=== PATIENT | male | born 1950 | race Caucasian/White ===

== ENCOUNTER 2023-08-09 17:17 | Inpatient (IN) | payer OTHER ==
[~2023-08-09] VITALS: Ht 172.7 cm; Wt 70.8 kg
[~2023-08-09 17:17] MED LIST: ARIP5TAB42; CYCL10TA24 PO; ESCI20TA38 PO; HYDR-3927 PO; LEVE500T9 PO; LUBI8CAP PO; METO25CA PO; NEU300 PO; OSEL75CA PO; SIMV-343 PO
[2023-08-09 17:21] VITALS: BP_SYST 125; PULSE 73; RESP 15; TEMP 98.8; O2SAT 95
[2023-08-09 17:47] LABS: BASOPHILS % (AUTO) 0.8 % (0.0-2.0); EOSINOPHILS # (AUTO) 0.1 K/uL (0.0-0.4); EOSINOPHILS % (AUTO) 2.5 % (0.0-4.0); HEMATOCRIT 38.7 % (36-54); HEMOGLOBIN 13.1 g/dL (14.0-18.0); LYMPHOCYTES # (AUTO) 1.5 K/uL (1.0-5.5); LYMPHOCYTES % (AUTO) 27.8 % (20.5-51.5); MEAN CORPUSCULAR HEMOGLOBIN 29 pg (27-31); MEAN CORPUSCULAR HGB CONC 34 % (32-36); MEAN CORPUSCULAR VOLUME 86 fL (79.0-98.0); MONOCYTES # (AUTO) 0.5 K/uL (0.0-1.0); MONOCYTES % (AUTO) 8.6 % (1.7-9.3); NEUTROPHILS # (AUTO) 3.2 K/uL (1.8-7.7); NEUTROPHILS % (AUTO) 60.3 % (40.0-70.0); PLATELET COUNT (AUTO) 157 K/uL (130-430); RED BLOOD CELL COUNT(AUTO) 4.53 MIL/uL (4.2-6.2); WHITE BLOOD COUNT (AUTO) 5.4 K/uL (4.8-10.8)
[2023-08-09 17:59] LABS: PROTHROMBIN TIME 10.4 SECS (9.5-12.5)
[2023-08-09 18:03] LABS: BILIRUBIN,URINE NEGATIVE (NEGATIVE); BLOOD, URINE NEGATIVE (NEGATIVE); CLARITY/URINE CLEAR (CLEAR); COLOR,URINE YELLOW (YELLOW); GLUCOSE,URINE NEGATIVE (NEGATIVE); KETONES,URINE NEGATIVE (NEGATIVE); LEUKOCYTE ESTERASE ,URINE NEGATIVE (NEGATIVE); NITRITE, URINE NEGATIVE (NEGATIVE); PH,URINE 7.5 (5.0-8.0); PROTEIN URINE NEGATIVE (NEGATIVE); UROBILINOGEN,URINE 0.2 (0.2-1.0)
[2023-08-09] MEDS: MECLIZINE HCL 25 MG TABLET (ANITVERT) PO ONE (18:42)
[2023-08-09 19:02] LABS: ALANINE AMINOTRANSFERASE 29 U/L (12-78); ALBUMIN 3.7 g/dL (3.4-4.8); AMYLASE 34 U/L (0-100); ANION GAP 8 (5-15); ASPARTATE AMINOTRANSFERASE 9 U/L (10-37); BILIRUBIN,DIRECT 0.1 mg/dL (0.0-0.3); CALCIUM 8.9 mg/dL (8.4-11.0); CARBON DIOXIDE 28 mmol/L (23-29); CHLORIDE 100 mmol/L (98-107); CREATININE 0.92 mg/dL (0.55-1.30); GLUCOSE 98 mg/dL (74-106); LACTATE DEHYDROGENASE 154 U/L (85-227); LIPASE 25 U/L (16-77); POTASSIUM 4.6 mmol/L (3.5-5.1); SODIUM SERUM 136 mmol/L (136-145); TOTAL BILIRUBIN 0.5 mg/dL (0.0-1.0); UREA NITROGEN, BLOOD 20 mg/dL (8-21)
[2023-08-09 19:03] LABS: GFR AFRICAN AMERICAN 105 mL/min (>90); GFR NON AFRICAN-AMERICAN 86 mL/min (>90)
[2023-08-09 19:20] LABS: ACETONE, SERUM NEGATIVE (NEGATIVE)
[2023-08-09] MEDS: METOCLOPRAMIDE HCL 10 MG/2 ML VIAL IV ONE (19:37)
[2023-08-09] MEDS ORDERED: ACETAMINOPHEN 325 MG TABLET PO PRN (21:30)
[2023-08-09] MEDS ORDERED: LORazepam 2 MG/ML VIAL IVP PRN (21:30)
[2023-08-09] MEDS ORDERED: DOCUSATE SODIUM 100 MG CAPSULE PO PRN (21:30)
[2023-08-09] MEDS ORDERED: MUPIROCIN 2% TOPICAL OINTMENT 22 GM NS PRN (21:30)
[2023-08-09] MEDS ORDERED: ONDANSETRON HCL 4 MG/2 ML VIAL IVP PRN (21:30)
[2023-08-09] MEDS ORDERED: MORPHINE 2 MG/ML INJ. SYRINGE IVP PRN (21:30)
[2023-08-09] MEDS ORDERED: POTASSIUM CHLORIDE 20 MEQ TABLET.ER PO PRN (21:30)
[2023-08-09] MEDS ORDERED: ZOLPIDEM TARTRATE 5 MG TABLET PO PRN (21:30)
[2023-08-09] MEDS ORDERED: MAGNESIUM SULFATE 50 ML IV PRN (21:30)
[2023-08-09] MEDS: ALPRAZolam 0.25 MG TABLET PO ONE (21:51)
[2023-08-10 04:30] LABS: BASOPHILS % (AUTO) 0.5 % (0.0-2.0); EOSINOPHILS # (AUTO) 0.1 K/uL (0.0-0.4); EOSINOPHILS % (AUTO) 2.8 % (0.0-4.0); HEMATOCRIT 39.4 % (36-54); HEMOGLOBIN 13.5 g/dL (14.0-18.0); LYMPHOCYTES # (AUTO) 1.7 K/uL (1.0-5.5); LYMPHOCYTES % (AUTO) 35.4 % (20.5-51.5); MEAN CORPUSCULAR HEMOGLOBIN 29 pg (27-31); MEAN CORPUSCULAR HGB CONC 34 % (32-36); MEAN CORPUSCULAR VOLUME 86 fL (79.0-98.0); MONOCYTES # (AUTO) 0.4 K/uL (0.0-1.0); MONOCYTES % (AUTO) 8.1 % (1.7-9.3); NEUTROPHILS # (AUTO) 2.6 K/uL (1.8-7.7); NEUTROPHILS % (AUTO) 53.2 % (40.0-70.0); PLATELET COUNT (AUTO) 141 K/uL (130-430); RED CELL DISTRIBUTION WIDTH 14.7 % (9.0-15.0); WHITE BLOOD COUNT (AUTO) 4.9 K/uL (4.8-10.8)
[2023-08-10 05:05] LABS: CALCIUM 9.3 mg/dL (8.4-11.0); CREATININE 0.79 mg/dL (0.55-1.30); POTASSIUM 3.9 mmol/L (3.5-5.1)
[2023-08-10 09:12] VITALS: BP_SYST 107; PULSE 77; RESP 16; TEMP 98.6; O2SAT 96
[2023-08-10] MEDS: levETIRAcetam 500 MG TABLET PO SCH (09:44)
[2023-08-10] MEDS: GABAPENTIN 300 MG CAPSULE PO SCH (09:45)
[2023-08-10] MEDS: SIMVASTATIN 20 MG TABLET PO SCH (09:45)
[2023-08-10] MEDS: ARIPiprazole 5 MG TAB PO SCH (09:45)
[2023-08-10] MEDS: HEPARIN SODIUM,PORCINE 5,000 UNITS/ML VIAL SUBCUT SCH (09:47)
[2023-08-10 10:00] VITALS: BP_SYST 107; PULSE 77; RESP 16; TEMP 98.6
[2023-08-10] MEDS: CITALOPRAM HYDROBROMIDE 20 MG TABLET PO SCH (10:39)
[2023-08-10 12:38] VITALS: BP_SYST 106; PULSE 68; RESP 16; TEMP 97.8; O2SAT 97
[2023-08-10] MEDS: LUBIPROSTONE 8 MCG CAPSULE PO SCH (13:04)
[2023-08-10] MEDS: MAG-AL HYDROX/SIMETH 30 ML UDC PO ONE (13:04)
[2023-08-10] MEDS: MORPHINE 2 MG/ML INJ. SYRINGE IVP PRN (14:34)
[2023-08-10] MEDS: IBUPROFEN 800 MG TABLET PO ONE (16:54)
[2023-08-10 17:04] VITALS: BP_SYST 133; PULSE 74; RESP 17; TEMP 97.8; O2SAT 97
[2023-08-10 20:00] VITALS: BP_SYST 123; PULSE 70; RESP 18; TEMP 98.2; O2SAT 96
[2023-08-10 20:15] VITALS: O2SAT 96
[2023-08-10] MEDS: MAG-AL HYDROX/SIMETH 30 ML UDC PO PRN (22:05)
[2023-08-11 00:10] VITALS: BP_SYST 121; PULSE 66; RESP 18; TEMP 98; O2SAT 95
[2023-08-11 05:54] LABS: BASOPHILS % (AUTO) 0.4 % (0.0-2.0); EOSINOPHILS # (AUTO) 0.1 K/uL (0.0-0.4); EOSINOPHILS % (AUTO) 2.4 % (0.0-4.0); HEMATOCRIT 40.7 % (36-54); HEMOGLOBIN 13.8 g/dL (14.0-18.0); LYMPHOCYTES # (AUTO) 1.6 K/uL (1.0-5.5); LYMPHOCYTES % (AUTO) 30.2 % (20.5-51.5); MEAN CORPUSCULAR HEMOGLOBIN 29 pg (27-31); MEAN CORPUSCULAR HGB CONC 34 % (32-36); MEAN CORPUSCULAR VOLUME 86 fL (79.0-98.0); MONOCYTES # (AUTO) 0.3 K/uL (0.0-1.0); MONOCYTES % (AUTO) 6.6 % (1.7-9.3); NEUTROPHILS # (AUTO) 3.1 K/uL (1.8-7.7); NEUTROPHILS % (AUTO) 60.4 % (40.0-70.0); PLATELET COUNT (AUTO) 144 K/uL (130-430); RED BLOOD CELL COUNT(AUTO) 4.74 MIL/uL (4.2-6.2); RED CELL DISTRIBUTION WIDTH 14.5 % (9.0-15.0); WHITE BLOOD COUNT (AUTO) 5.2 K/uL (4.8-10.8)
[2023-08-11 07:37] LABS: CALCIUM 8.7 mg/dL (8.4-11.0); CREATININE 0.77 mg/dL (0.55-1.30); POTASSIUM 4.2 mmol/L (3.5-5.1)
[2023-08-11 08:00] VITALS: BP_SYST 129; PULSE 80; RESP 16; TEMP 98.4; O2SAT 98
[2023-08-11 12:17] VITALS: BP_SYST 117; PULSE 84; RESP 16; TEMP 98.5; O2SAT 96
[2023-08-11 13:32] VITALS: BP_SYST 117; PULSE 84; RESP 16; TEMP 98.5; O2SAT 96
== END 2023-08-11 14:30 | disposition home health service (06) | DRG 74 ==
LOC: SED 17:17 → STU 21:22
PROVIDERS: ADMIT General Practice; ATTEND General Practice
PROC: 4A00X4Z Measurement of Central Nervous Electrical Activity, External Approach (ICD-10-PCS; principal; 2023-08-11)
DX: G90.9 Disorder of the autonomic nervous system, unspecified (principal); E44.0 Moderate protein-calorie malnutrition; F32.A Depression, unspecified; E78.5 Hyperlipidemia, unspecified; F39 Unspecified mood [affective] disorder; G40.909 Epilepsy, unspecified, not intractable, without status epilepticus; I10 Essential (primary) hypertension; Z87.820 Personal history of traumatic brain injury; Z90.49 Acquired absence of other specified parts of digestive tract; Z68.23 Body mass index [BMI] 23.0-23.9, adult; Z79.899 Other long term (current) drug therapy
CPT/HCPCS: 36415; 70450-TC; 80048; 80076; 81001; 81003; 82009; 82150; 83037; 83605; 83615; 83690; 83735; 84484; 85025; 85610; 85730; 93005; 93880; 95816; 97110-GP; 97112-GP; 97116-GP; 97530-GP; 99285; G0378; J1644; J2270; J2765; J8597

== ENCOUNTER 2023-09-06 20:25 | Emergency (ER) | payer OTHER ==
[~2023-09-06] VITALS: Ht 177.8 cm; Wt 72.6 kg
[2023-09-06 20:51] VITALS: BP_SYST 128; PULSE 88; RESP 20; TEMP 97.7; O2SAT 94
[2023-09-06 21:29] LABS: BASOPHILS % (AUTO) 0.8 % (0.0-2.0); EOSINOPHILS # (AUTO) 0.2 K/uL (0.0-0.4); EOSINOPHILS % (AUTO) 3.2 % (0.0-4.0); HEMATOCRIT 37.5 % (36-54); HEMOGLOBIN 12.8 g/dL (14.0-18.0); LYMPHOCYTES # (AUTO) 1.5 K/uL (1.0-5.5); LYMPHOCYTES % (AUTO) 26.9 % (20.5-51.5); MEAN CORPUSCULAR HEMOGLOBIN 29 pg (27-31); MEAN CORPUSCULAR HGB CONC 34 % (32-36); MEAN CORPUSCULAR VOLUME 85 fL (79.0-98.0); MONOCYTES # (AUTO) 0.6 K/uL (0.0-1.0); NEUTROPHILS # (AUTO) 3.4 K/uL (1.8-7.7); NEUTROPHILS % (AUTO) 59.1 % (40.0-70.0); PLATELET COUNT (AUTO) 160 K/uL (130-430); RED BLOOD CELL COUNT(AUTO) 4.41 MIL/uL (4.2-6.2); RED CELL DISTRIBUTION WIDTH 14.1 % (9.0-15.0); WHITE BLOOD COUNT (AUTO) 5.7 K/uL (4.8-10.8)
[2023-09-06 21:46] LABS: ACETAMINOPHEN 2 ug/mL (1-30); ALANINE AMINOTRANSFERASE 33 U/L (12-78); ALBUMIN 3.6 g/dL (3.4-4.8); ANION GAP 5 (5-15); ASPARTATE AMINOTRANSFERASE 17 U/L (10-37); BILIRUBIN,DIRECT 0.1 mg/dL (0.0-0.3); CARBON DIOXIDE 32 mmol/L (23-29); CHLORIDE 101 mmol/L (98-107); CREATININE 0.98 mg/dL (0.55-1.30); GFR AFRICAN AMERICAN 97 mL/min (>90); GLUCOSE 103 mg/dL (74-106); POTASSIUM 4.3 mmol/L (3.5-5.1); SALICYLATE 1 mg/dL (3-30); SODIUM SERUM 138 mmol/L (136-145); TOTAL BILIRUBIN 0.3 mg/dL (0.0-1.0); TOTAL PROTEIN, SERUM 6.9 g/dL (6.4-8.3); UREA NITROGEN, BLOOD 22 mg/dL (8-21)
[2023-09-06 21:49] LABS: ALCOHOL, BLOOD < 3 mg/dL (<10); GFR NON AFRICAN-AMERICAN 80 mL/min (>90)
[2023-09-06 22:17] LABS: BILIRUBIN,URINE NEGATIVE (NEGATIVE); BLOOD, URINE NEGATIVE (NEGATIVE); CLARITY/URINE CLEAR (CLEAR); COLOR,URINE YELLOW (YELLOW); GLUCOSE,URINE NEGATIVE (NEGATIVE); KETONES,URINE NEGATIVE (NEGATIVE); LEUKOCYTE ESTERASE ,URINE NEGATIVE (NEGATIVE); NITRITE, URINE NEGATIVE (NEGATIVE); PROTEIN URINE NEGATIVE (NEGATIVE); UROBILINOGEN,URINE 0.2 (0.2-1.0)
[2023-09-06 22:33] LABS: BARBITURATE, URINE NEGATIVE (NEG <=200); BENZODIAZEPINE, URINE NEGATIVE (NEG <=150); CANNABINOID, URINE NEGATIVE (NEG <=50); COCAINE, URINE NEGATIVE (NEG <=150); METHAMPHETAMINES SCREEN,URINE NEGATIVE (NEG <=500); OPIATE, URINE POSITIVE (NEG <=100); PHENCYCLIDINE SCREEN,URINE NEGATIVE (NEG <=25); UR TRICYCLIC ANTIDEPRESSANTS NEGATIVE (NEG <=300); URINE AMPHETAMINE NEGATIVE (NEG <=500); URINE METHADONE NEGATIVE (NEG <=200); URINE OXYCODONE SCREEN NEGATIVE (NEG <=100)
[2023-09-07 00:48] VITALS: BP_SYST 127; PULSE 68; RESP 14; TEMP 98; O2SAT 94
== END 2023-09-07 00:48 | disposition home or self-care (01) ==
LOC: SED 20:25
DX: T39.1X1A Poisoning by 4-Aminophenol derivatives, accidental (unintentional), initial encounter (principal); K21.9 Gastro-esophageal reflux disease without esophagitis; I10 Essential (primary) hypertension; F32.A Depression, unspecified; Z90.49 Acquired absence of other specified parts of digestive tract; Z79.899 Other long term (current) drug therapy; Z79.2 Long term (current) use of antibiotics; Y92.89 Other specified places as the place of occurrence of the external cause
CPT/HCPCS: 99284; 80307; 80076; 80048; 85025; 36415; 93005; 81001; G0482; G0480; G0481; 81003

== ENCOUNTER 2023-11-19 12:14 | Inpatient (IN) | payer OTHER, MEDICAID ==
[~2023-11-19] VITALS: Ht 177.8 cm; Wt 72.6 kg
[2023-11-19 12:18] VITALS: BP_SYST 131; PULSE 101; RESP 18; TEMP 98; O2SAT 96
[2023-11-19 13:05] LABS: BASOPHILS % (AUTO) 0.3 % (0.0-2.0); EOSINOPHILS # (AUTO) 0.3 K/uL (0.0-0.4); EOSINOPHILS % (AUTO) 2.6 % (0.0-4.0); HEMATOCRIT 43.7 % (36-54); HEMOGLOBIN 14.4 g/dL (14.0-18.0); LYMPHOCYTES # (AUTO) 0.9 K/uL (1.0-5.5); LYMPHOCYTES % (AUTO) 8.2 % (20.5-51.5); MEAN CORPUSCULAR HEMOGLOBIN 29 pg (27-31); MEAN CORPUSCULAR HGB CONC 33 % (32-36); MEAN CORPUSCULAR VOLUME 87 fL (79.0-98.0); MONOCYTES # (AUTO) 0.8 K/uL (0.0-1.0); MONOCYTES % (AUTO) 7.2 % (1.7-9.3); NEUTROPHILS # (AUTO) 8.9 K/uL (1.8-7.7); NEUTROPHILS % (AUTO) 81.7 % (40.0-70.0); PLATELET COUNT (AUTO) 153 K/uL (130-430); RED BLOOD CELL COUNT(AUTO) 5.01 MIL/uL (4.2-6.2); RED CELL DISTRIBUTION WIDTH 13.9 % (9.0-15.0); WHITE BLOOD COUNT (AUTO) 10.9 K/uL (4.8-10.8)
[2023-11-19 13:31] LABS: ALANINE AMINOTRANSFERASE 20 U/L (12-78); ALBUMIN 4.2 g/dL (3.4-4.8); ANION GAP 9 (5-15); ASPARTATE AMINOTRANSFERASE 13 U/L (10-37); BILIRUBIN,DIRECT 0.2 mg/dL (0.0-0.3); CALCIUM 9.6 mg/dL (8.4-11.0); CARBON DIOXIDE 30 mmol/L (23-29); CHLORIDE 101 mmol/L (98-107); CREATININE 0.89 mg/dL (0.55-1.30); GLUCOSE 92 mg/dL (74-106); POTASSIUM 4.2 mmol/L (3.5-5.1); SODIUM SERUM 140 mmol/L (136-145); TOTAL PROTEIN, SERUM 7.6 g/dL (6.4-8.3); UREA NITROGEN, BLOOD 17 mg/dL (8-21)
[2023-11-19] MEDS: NACL 0.9% 1,000 ML IV ONE (16:01)
[2023-11-19] MEDS ORDERED: ASPI-1393 PO (16:03)
[2023-11-19] MEDS ORDERED: LORA10CA (16:05)
[2023-11-19] MEDS ORDERED: LEVE500T9 (16:07)
[2023-11-19] MEDS ORDERED: OMEP40CA20 (16:07)
[2023-11-19] MEDS ORDERED: LUBI24CA9 (16:07)
[2023-11-19] MEDS ORDERED: ATOG60TA (16:15)
[2023-11-19] MEDS ORDERED: HYDR-3917 (16:15)
[2023-11-19] MEDS ORDERED: POLY17PO PO (16:15)
[2023-11-19] MEDS ORDERED: ACET500T95 (16:15)
[2023-11-19] MEDS ORDERED: PSYL3.4P5 (16:15)
[2023-11-19] MEDS ORDERED: RIME75TA (16:15)
[2023-11-19] MEDS ORDERED: SENN8.6T19 (16:24)
[2023-11-19] MEDS ORDERED: MAG-55 (16:24)
[2023-11-19] MEDS: D5LR 1,000 ML IV SCH (17:17)
[2023-11-19] MEDS: PANTOPRAZOLE SODIUM 40 MG/VIAL (PROTONIX) IVP ONE (17:31)
[2023-11-19] MEDS: levETIRAcetam 500 MG in NS 100 ML IV SCH (17:34)
[2023-11-19 20:00] VITALS: BP_SYST 122; PULSE 77; RESP 18; TEMP 98
[2023-11-19] MEDS ORDERED: NALOXONE HCL 0.4 MG/ML AMP (NARCAN) IVP PRN (22:00)
[2023-11-19 22:06] VITALS: BP_SYST 122; PULSE 77; TEMP 98; O2SAT 95
[2023-11-20] VITALS: BP_SYST 117; PULSE 77; TEMP 99
[2023-11-20] MEDS: MORPHINE 2 MG/ML INJ. SYRINGE IVP PRN (01:28)
[2023-11-20] MEDS: ACETAMINOPHEN 650 MG SUPP.RECT RC PRN (03:43)
[2023-11-20 04:55] LABS: BASOPHILS % (AUTO) 0.5 % (0.0-2.0); EOSINOPHILS # (AUTO) 0.4 K/uL (0.0-0.4); EOSINOPHILS % (AUTO) 4.6 % (0.0-4.0); HEMATOCRIT 38.9 % (36-54); HEMOGLOBIN 12.9 g/dL (14.0-18.0); LYMPHOCYTES # (AUTO) 1.2 K/uL (1.0-5.5); LYMPHOCYTES % (AUTO) 12.8 % (20.5-51.5); MEAN CORPUSCULAR HEMOGLOBIN 29 pg (27-31); MEAN CORPUSCULAR HGB CONC 33 % (32-36); MEAN CORPUSCULAR VOLUME 86 fL (79.0-98.0); MONOCYTES # (AUTO) 0.7 K/uL (0.0-1.0); MONOCYTES % (AUTO) 7.5 % (1.7-9.3); NEUTROPHILS # (AUTO) 6.9 K/uL (1.8-7.7); NEUTROPHILS % (AUTO) 74.6 % (40.0-70.0); PLATELET COUNT (AUTO) 148 K/uL (130-430); WHITE BLOOD COUNT (AUTO) 9.3 K/uL (4.8-10.8)
[2023-11-20 05:19] LABS: ALANINE AMINOTRANSFERASE 17 U/L (12-78); ALBUMIN 3.4 g/dL (3.4-4.8); ANION GAP 6 (5-15); ASPARTATE AMINOTRANSFERASE 11 U/L (10-37); CALCIUM 8.9 mg/dL (8.4-11.0); CARBON DIOXIDE 31 mmol/L (23-29); CHLORIDE 104 mmol/L (98-107); CREATININE 0.81 mg/dL (0.55-1.30); GLUCOSE 93 mg/dL (74-106); POTASSIUM 4.3 mmol/L (3.5-5.1); SODIUM SERUM 141 mmol/L (136-145); TOTAL BILIRUBIN 0.8 mg/dL (0.0-1.0); TOTAL PROTEIN, SERUM 6.6 g/dL (6.4-8.3); UREA NITROGEN, BLOOD 14 mg/dL (8-21)
[2023-11-20] MEDS: levETIRAcetam 500 MG IV PREMIX 100 ML IV SCH (06:59)
[2023-11-20 08:00] VITALS: BP_SYST 136; PULSE 88; RESP 20; TEMP 96.8; O2SAT 97; O2SAT 99
[2023-11-20] MEDS: PANTOPRAZOLE SODIUM 40 MG/VIAL (PROTONIX) IVP SCH (10:37)
[2023-11-20] MEDS: MORPHINE 4 MG INJ. 4 MG/ML VIAL IVP PRN (10:39)
[2023-11-20 16:34] VITALS: BP_SYST 140; PULSE 85; RESP 18; TEMP 99.1; O2SAT 97
[2023-11-20 20:00] VITALS: BP_SYST 135; PULSE 85; RESP 18; TEMP 98.6; O2SAT 96
[2023-11-21 00:39] VITALS: BP_SYST 151; PULSE 77; RESP 18; TEMP 98.1; O2SAT 97
[2023-11-21] MEDS: fentaNYL CITRATE/PF 100 MCG/2 ML AMP ONE (07:15)
[2023-11-21] MEDS: MIDAZOLAM HCL 5 MG/5 ML VIAL ONE (07:15)
[2023-11-21 08:36] VITALS: BP_SYST 131; PULSE 77; RESP 16; TEMP 97.8; O2SAT 96
[2023-11-21 12:26] VITALS: BP_SYST 131; PULSE 74; RESP 16; TEMP 98.4; O2SAT 98
[2023-11-21 16:00] VITALS: BP_SYST 138; PULSE 72; RESP 18; TEMP 97.8; O2SAT 98
[2023-11-21] MEDS: MAG-AL HYDROX/SIMETH 30 ML UDC PO ONE (18:09)
[2023-11-21 20:00] VITALS: BP_SYST 149; PULSE 73; RESP 18; TEMP 97.9; O2SAT 97
[2023-11-22] VITALS: BP_SYST 139; PULSE 67; RESP 18; TEMP 97.9; O2SAT 96
[2023-11-22 08:00] VITALS: BP_SYST 134; PULSE 72; RESP 16; TEMP 97.9; O2SAT 95
[2023-11-22 12:31] VITALS: BP_SYST 142; PULSE 70; RESP 17; TEMP 97.7; O2SAT 97
[2023-11-22 15:00] VITALS: BP_SYST 134; PULSE 72; RESP 16; TEMP 97.9; O2SAT 95
[2023-11-22 16:15] VITALS: BP_SYST 140; PULSE 64; RESP 18; TEMP 97.8; O2SAT 96
[2023-11-22 20:00] VITALS: BP_SYST 129; PULSE 75; RESP 18; TEMP 98; O2SAT 96
[2023-11-23] VITALS: BP_SYST 122; PULSE 75; RESP 18; TEMP 97.8; O2SAT 98
[2023-11-23 09:30] VITALS: O2SAT 98
[2023-11-23 09:37] VITALS: BP_SYST 135; PULSE 78; RESP 18; TEMP 97.2; O2SAT 98
[2023-11-23 12:31] VITALS: BP_SYST 131; PULSE 69; RESP 16; TEMP 97.9; O2SAT 98
[2023-11-23] MEDS: MAG-AL HYDROX/SIMETH 30 ML UDC PO PRN (14:56)
[2023-11-23 17:05] VITALS: BP_SYST 134; RESP 14; TEMP 98.6; O2SAT 96
[2023-11-23 20:00] VITALS: BP_SYST 134; PULSE 72; RESP 18; TEMP 97.7; O2SAT 96
[2023-11-24] VITALS (7 sets, daily range): BP systolic 127–140; PULSE 77–96; RESP 14–18; TEMP 97.9–99.1; O2SAT 95–98
[2023-11-24] MEDS: ONDANSETRON HCL 4 MG/2 ML VIAL IVP PRN (09:46)
[2023-11-25] VITALS: BP_SYST 117; PULSE 74; RESP 16; TEMP 97.5; O2SAT 95
[2023-11-25 04:00] VITALS: BP_SYST 118; PULSE 74; RESP 16; TEMP 97.3; O2SAT 95
[2023-11-25 06:25] LABS: BASOPHILS % (AUTO) 0.5 % (0.0-2.0); EOSINOPHILS # (AUTO) 0.5 K/uL (0.0-0.4); EOSINOPHILS % (AUTO) 7.2 % (0.0-4.0); HEMATOCRIT 38.6 % (36-54); HEMOGLOBIN 12.9 g/dL (14.0-18.0); LYMPHOCYTES # (AUTO) 1.6 K/uL (1.0-5.5); LYMPHOCYTES % (AUTO) 22.8 % (20.5-51.5); MEAN CORPUSCULAR HEMOGLOBIN 29 pg (27-31); MEAN CORPUSCULAR HGB CONC 33 % (32-36); MEAN CORPUSCULAR VOLUME 86 fL (79.0-98.0); MONOCYTES # (AUTO) 0.7 K/uL (0.0-1.0); MONOCYTES % (AUTO) 9.5 % (1.7-9.3); NEUTROPHILS # (AUTO) 4.3 K/uL (1.8-7.7); PLATELET COUNT (AUTO) 186 K/uL (130-430); RED BLOOD CELL COUNT(AUTO) 4.51 MIL/uL (4.2-6.2); RED CELL DISTRIBUTION WIDTH 13.8 % (9.0-15.0); WHITE BLOOD COUNT (AUTO) 7.2 K/uL (4.8-10.8)
[2023-11-25 06:50] LABS: ANION GAP 9 (5-15); CALCIUM 8.9 mg/dL (8.4-11.0); CARBON DIOXIDE 30 mmol/L (23-29); CHLORIDE 102 mmol/L (98-107); CREATININE 0.73 mg/dL (0.55-1.30); GLUCOSE 91 mg/dL (74-106); POTASSIUM 3.6 mmol/L (3.5-5.1); SODIUM SERUM 141 mmol/L (136-145); UREA NITROGEN, BLOOD 8 mg/dL (8-21)
[2023-11-25 08:00] VITALS: BP_SYST 116; PULSE 81; RESP 18; TEMP 97.4; O2SAT 97
[2023-11-25 12:47] VITALS: BP_SYST 127; PULSE 82; RESP 18; TEMP 98; O2SAT 98
[2023-11-25 16:25] VITALS: BP_SYST 125; PULSE 83; RESP 18; TEMP 98.5; O2SAT 97
[2023-11-25] MEDS ORDERED: DIPHENHYDRAMINE INJ 50 MG/ML VIAL IVP PRN (17:30)
[2023-11-25 20:00] VITALS: BP_SYST 127; PULSE 74; RESP 18; TEMP 97.9; O2SAT 96
[2023-11-26] VITALS: BP_SYST 122; PULSE 72; RESP 18; TEMP 97.2; O2SAT 95
[2023-11-26 07:49] VITALS: BP_SYST 119; PULSE 72; RESP 18; TEMP 97.3; O2SAT 97
[2023-11-26 08:30] VITALS: O2SAT 97
[2023-11-26 11:05] VITALS: BP_SYST 121; PULSE 82; RESP 16; TEMP 97.8; O2SAT 97
[2023-11-26 20:04] VITALS: BP_SYST 139; PULSE 79; RESP 19; TEMP 97.9; O2SAT 96
[2023-11-27] VITALS (7 sets, daily range): BP systolic 119–132; PULSE 57–98; RESP 15–18; TEMP 97.3–98.8; O2SAT 96–100
[2023-11-28] VITALS (7 sets, daily range): BP systolic 130–144; PULSE 60–105; RESP 15–16; TEMP 96.1–98.2; O2SAT 95–99
[2023-11-28 08:04] LABS: ALANINE AMINOTRANSFERASE 18 U/L (12-78); ANION GAP 6 (5-15); ASPARTATE AMINOTRANSFERASE 9 U/L (10-37); CALCIUM 9.1 mg/dL (8.4-11.0); CARBON DIOXIDE 33 mmol/L (23-29); CHLORIDE 102 mmol/L (98-107); CREATININE 0.68 mg/dL (0.55-1.30); GLUCOSE 88 mg/dL (74-106); PHOSPHORUS 3.5 mg/dL (2.7-4.5); POTASSIUM 3.6 mmol/L (3.5-5.1); SODIUM SERUM 141 mmol/L (136-145); TOTAL BILIRUBIN 0.5 mg/dL (0.0-1.0); TOTAL PROTEIN, SERUM 6.3 g/dL (6.4-8.3); UREA NITROGEN, BLOOD 5 mg/dL (8-21)
[2023-11-28 08:05] LABS: BASOPHILS % (AUTO) 0.8 % (0.0-2.0); EOSINOPHILS # (AUTO) 0.6 K/uL (0.0-0.4); EOSINOPHILS % (AUTO) 10.8 % (0.0-4.0); HEMOGLOBIN 12.1 g/dL (14.0-18.0); LYMPHOCYTES # (AUTO) 1.8 K/uL (1.0-5.5); LYMPHOCYTES % (AUTO) 31.5 % (20.5-51.5); MEAN CORPUSCULAR HEMOGLOBIN 28 pg (27-31); MEAN CORPUSCULAR HGB CONC 33 % (32-36); MEAN CORPUSCULAR VOLUME 85 fL (79.0-98.0); MONOCYTES # (AUTO) 0.5 K/uL (0.0-1.0); MONOCYTES % (AUTO) 9.6 % (1.7-9.3); NEUTROPHILS # (AUTO) 2.6 K/uL (1.8-7.7); NEUTROPHILS % (AUTO) 47.3 % (40.0-70.0); PLATELET COUNT (AUTO) 225 K/uL (130-430); RED BLOOD CELL COUNT(AUTO) 4.33 MIL/uL (4.2-6.2); RED CELL DISTRIBUTION WIDTH 13.8 % (9.0-15.0); WHITE BLOOD COUNT (AUTO) 5.6 K/uL (4.8-10.8)
[2023-11-29 00:18] VITALS: BP_SYST 121; PULSE 70; RESP 17; TEMP 98; O2SAT 96
[2023-11-29] MEDS: SIMETHICONE 40 MG/0.6 ML ML ONE (06:50)
[2023-11-29] MEDS: MEPERIDINE 100 MG INJ. 100 MG/ML VIAL ONE (06:50)
[2023-11-29] MEDS: MIDAZOLAM HCL 5 MG/5 ML VIAL ONE (06:51)
[2023-11-29 08:00] VITALS: BP_SYST 131; PULSE 77; RESP 18; TEMP 95.5; O2SAT 96
[2023-11-29] MEDS: CEFAZOLIN 1 GM IVPB PREMIX 50 ML IV ONE ×2 (11:40→12:00)
[2023-11-29 12:35] VITALS: BP_SYST 129; PULSE 72; RESP 18; TEMP 97.7; O2SAT 96
[2023-11-29] MEDS: MORPHINE 4 MG INJ. 4 MG/ML VIAL IVP PRN (16:06)
[2023-11-29 16:12] VITALS: BP_SYST 149; PULSE 83; RESP 18; TEMP 97.4; O2SAT 98
[2023-11-29 20:03] VITALS: BP_SYST 125; PULSE 95; RESP 20; TEMP 99.3; O2SAT 100
[2023-11-30 00:48] VITALS: BP_SYST 108; PULSE 81; RESP 19; TEMP 98.7
[2023-11-30 06:34] LABS: BASOPHILS % (AUTO) 0.4 % (0.0-2.0); EOSINOPHILS # (AUTO) 0.4 K/uL (0.0-0.4); EOSINOPHILS % (AUTO) 6.7 % (0.0-4.0); HEMATOCRIT 39.2 % (36-54); HEMOGLOBIN 13.1 g/dL (14.0-18.0); LYMPHOCYTES # (AUTO) 1.1 K/uL (1.0-5.5); LYMPHOCYTES % (AUTO) 16.2 % (20.5-51.5); MEAN CORPUSCULAR HEMOGLOBIN 29 pg (27-31); MEAN CORPUSCULAR HGB CONC 34 % (32-36); MEAN CORPUSCULAR VOLUME 85 fL (79.0-98.0); MONOCYTES # (AUTO) 0.6 K/uL (0.0-1.0); NEUTROPHILS # (AUTO) 4.5 K/uL (1.8-7.7); NEUTROPHILS % (AUTO) 67.7 % (40.0-70.0); PLATELET COUNT (AUTO) 205 K/uL (130-430); RED BLOOD CELL COUNT(AUTO) 4.61 MIL/uL (4.2-6.2); RED CELL DISTRIBUTION WIDTH 13.8 % (9.0-15.0); WHITE BLOOD COUNT (AUTO) 6.6 K/uL (4.8-10.8)
[2023-11-30 07:09] LABS: ALANINE AMINOTRANSFERASE 14 U/L (12-78); ALBUMIN 2.9 g/dL (3.4-4.8); ANION GAP 7 (5-15); ASPARTATE AMINOTRANSFERASE 12 U/L (10-37); CALCIUM 8.5 mg/dL (8.4-11.0); CARBON DIOXIDE 30 mmol/L (23-29); CHLORIDE 102 mmol/L (98-107); CREATININE 0.86 mg/dL (0.55-1.30); GLUCOSE 102 mg/dL (74-106); POTASSIUM 4.2 mmol/L (3.5-5.1); SODIUM SERUM 139 mmol/L (136-145); TOTAL BILIRUBIN 0.5 mg/dL (0.0-1.0); TOTAL PROTEIN, SERUM 6.3 g/dL (6.4-8.3); UREA NITROGEN, BLOOD 15 mg/dL (8-21)
[2023-11-30 08:00] VITALS: BP_SYST 126; PULSE 74; RESP 18; TEMP 98.6; O2SAT 98
[2023-11-30 12:03] VITALS: BP_SYST 127; PULSE 85; RESP 18; TEMP 98.1; O2SAT 99
[2023-11-30 16:00] VITALS: BP_SYST 131; PULSE 85; RESP 18; TEMP 98.3; O2SAT 97
[2023-11-30 19:56] VITALS: O2SAT 96
[2023-11-30 20:23] VITALS: BP_SYST 119; PULSE 81; RESP 20; TEMP 98.2; O2SAT 97
[2023-12-01 00:43] VITALS: BP_SYST 111; PULSE 78; RESP 18; TEMP 98.6; O2SAT 96
[2023-12-01 08:05] VITALS: BP_SYST 131; PULSE 78; RESP 17; TEMP 98.3; O2SAT 95
[2023-12-01 11:12] VITALS: BP_SYST 119; PULSE 85; RESP 16; TEMP 98.1; O2SAT 96
[2023-12-01 15:05] VITALS: BP_SYST 125; PULSE 79; RESP 16; TEMP 98; O2SAT 97
[2023-12-01 18:50] VITALS: BP_SYST 125; PULSE 79; RESP 16; TEMP 98; O2SAT 97
[2023-12-01 19:15] VITALS: O2SAT 97
== END 2023-12-01 21:40 | DRG 57 ==
LOC: SED 12:14 → SMU 15:59 → STU 16:31 → SMU 17:30 → STU 11-20 07:21 → SMU 11-30 17:33
PROVIDERS: ADMIT Internal Medicine; ATTEND Internal Medicine
PROC: 0DB98ZX Excision of Duodenum, Via Natural or Artificial Opening Endoscopic, Diagnostic (ICD-10-PCS; 2023-11-21)
PROC: 0DB68ZX Excision of Stomach, Via Natural or Artificial Opening Endoscopic, Diagnostic (ICD-10-PCS; 2023-11-21)
PROC: 0DB58ZX Excision of Esophagus, Via Natural or Artificial Opening Endoscopic, Diagnostic (ICD-10-PCS; 2023-11-21)
PROC: 0DH68UZ Insertion of Feeding Device into Stomach, Via Natural or Artificial Opening Endoscopic (ICD-10-PCS; principal; 2023-11-29 09:30)
DX: I69.391 Dysphagia following cerebral infarction (principal); F03.93 Unspecified dementia, unspecified severity, with mood disturbance; K29.70 Gastritis, unspecified, without bleeding; K21.9 Gastro-esophageal reflux disease without esophagitis; I10 Essential (primary) hypertension; G89.4 Chronic pain syndrome; G40.909 Epilepsy, unspecified, not intractable, without status epilepticus; M19.011 Primary osteoarthritis, right shoulder; F32.A Depression, unspecified; Z79.899 Other long term (current) drug therapy; Z88.8 Allergy status to other drugs, medicaments and biological substances; R13.10 Dysphagia, unspecified
CPT/HCPCS: 36415; 43239; 43246; 70492; 70551; 71046; 73030; 80048; 80053; 80076; 83735; 83880; 84100; 84484; 85025; 85610; 85730; 88305; 88312; 88313; 92610-GN; 93005; 93306; 96365; 99285; C1751; G0378; J0690; J1953; J2175; J2250; J2270; J2405; J2470; J3010; J7040; J7120; Q9967